=== PATIENT | male | born 1985 | race Caucasian/White ===

== ENCOUNTER 2024-03-02 16:58 | Emergency (ER) | payer OTHER ==
[2024-03-02] MEDS ORDERED: Naloxone 0.4 MG/ML SDV IVPUSH PRN (17:55)
[2024-03-02] MEDS: HYDROmorphone 1 MG/ML Syringe IVPUSH ONE ×2 (18:02→18:54)
[2024-03-02] MEDS: Ondansetron 4 MG/2 ML SDV IVPUSH ONE (18:02)
[2024-03-02] MEDS: Ketorolac 30 MG/ML SDV IVPUSH ONE (18:02)
[2024-03-02] MEDS: Sodium Chloride 0.9% 10 ML Syringe FLUSH PRN (18:16)
[2024-03-02] MEDS ORDERED: Cephalexin 500 MG Cap ONE (20:52)
[2024-03-02] MEDS: ceFAZolin 2 GM in Sodium Chloride 0.9% 50 ML IV ONE (20:57)
[2024-03-02] MEDS: Cephalexin 500 MG Cap PO ONE (20:57)
[2024-03-02] MEDS: Lidocaine 1% 10 ML MDV INJECT ONE (20:58)
[2024-03-02] MEDS: Bupivacaine 0.5% 10 ML SDV INJECT ONE (20:58)
== END 2024-03-02 21:49 | disposition home or self-care (01) ==
LOC: JD.ED 16:58
DX: S61.213A Laceration without foreign body of left middle finger without damage to nail, initial encounter (principal); W23.1XXA Caught, crushed, jammed, or pinched between stationary objects, initial encounter; Y99.0 Civilian activity done for income or pay
CPT/HCPCS: 12002; 73140; 96365; 96375; 99283; A9270; J0665; J0690; J1170; J1885; J2405; J3490; 99282